=== PATIENT | male | born 1935 | race Caucasian/White ===

== ENCOUNTER 2017-03-06 08:57 | Emergency (ER) | payer OTHER, MEDICARE ==
[~2017-03-06 08:57] MED LIST: ACID REDUCER150 M1 PO; ALBUTEROL INH 0.3 ML AERO NEB; ALBUTEROL2.5 MG/3 M INH; ALDACTONE25 M1 PO; ASPIRIN EC81 MG PO; ATORVASTATIN CA40 M1 PO; CARVEDILOL6.25 MG PO; CITALOPRAM HBR40 M1 PO; COLESTID1 GM PO; COMPAZINE10 M PO; COREG12.5 M1 PO; COUMADIN6 M1 PO; DIGOXIN125 MCG PO; DITROPAN XL5 M1 PO; DOXYCYCLINE HY100 M2 PO; ELIQUIS5 M1 PO; HYDROCODON-ACE1 EA16 PO; HYDROPHILIC120 GM TP; KLOR-CON 1010 ME1 PO; LASIX20 M1 PO; LOPRESSOR50 M1 PO; MULTIVITAMINS1 EAC6 PO; NORCO 5/325 TAB1 TAB PO; PREDNISONE20 M1 PO; PRINIVIL10 M1 PO; PROTONIX40 M2 PO; RANEXA500 M1 PO; SOTALOL80 MG PO; SPIRIVA18 MC1 INH; SYMBICORT 16010.2 GM INH; SYMBICORT 80-41 PUFF INH; WARFARIN SODIUM6 MG PO; ZANTAC150 M1 PO; ZANTAC150 MG PO; ZITHROMAX250 M1 PO
[2017-03-06] MEDS ORDERED: SYNTHROID25 MC1 PO (10:02)
[2017-03-06 10:03] LABS: BASO % 0.4 % (0-2); EOS % 3.3 % (0-7); EOSINOPHIL ABSOLUTE COUNT 0.3 tho/cmm (0.0-0.7); HCT-HEMATOCRIT 41.2 % (36.0-53.5); HGB-HEMOGLOBIN 13.7 gm/dl (13.5-17.0); IMMATURE GRANULOCYTES ABSOLUTE 0.01 tho/cmm (0-0.03); IMMATURE GRANULOCYTES PERCENT 0.1 % (0-0.3); LYMPH ABSOLUTE COUNT 1.5 tho/cmm (0.8-4.5); MCH (MEAN CORPUSCULAR HGB) 31.1 pg (28.0-32.0); MCHC MEAN CORPUSCULAR HGB CONC 33.3 % (32.0-36.0); MCV (MEAN CELL VOLUME) 93.6 fl (82.0-96.0); MEAN PLATELET VOLUME 9.9 cmc (9.4-12.4); MONOCYTE ABSOLUTE COUNT 0.6 tho/cmm (0.0-1.2); NEUTROPHIL ABSOLUTE COUNT 5.7 tho/cmm (1.6-8.0); NEUTROPHIL-AUTOMATED 5.7 tho/cmm (1.6-8.0); NEUTROPHILS % 70.2 % (40-80); PLATELET COUNT 148 tho/cmm (150-450); RED CELL DISTRIBUTION WIDTH 13.6 % (12.4-16.4); WHITE BLOOD COUNT 8.1 tho/cmm (4.0-10.0)
[2017-03-06 10:06] LABS: INR 1.2 INR (0.9-1.1); PROTHROMBIN TIME 13.4 SECONDS (9.0-13.6)
[2017-03-06 10:13] LABS: ANION GAP 11 mmol/L (0-20); BLOOD UREA NITROGEN 27 mg/dl (6-24); CALCIUM 8.9 mg/dl (8.5-10.5); CARBON DIOXIDE-VENOUS 31 mmol/L (22-32); CHLORIDE 104 mmol/l (96-110); CREATININE 1.22 mg/dl (0.60-1.30); GLUCOSE 125 mg/dL (70-110); POTASSIUM 4.1 mmol/L (3.7-5.1); SODIUM 142 mmol/L (135-145); eGFR VALUE FOR BLACK 64 mL/Min
[2017-03-06 10:55] LABS: URINE BILIRUBIN NEGATIVE (NEG); URINE BLOOD LARGE (NEG); URINE GLUCOSE (UA) NEGATIVE (NEG); URINE KETONE NEGATIVE (NEG); URINE LEUKOCYTE ESTERASE POSITIVE (NEG); URINE NITRITE POSITIVE (NEG); URINE PH 6.5 (5.0-8.0); URINE PROTEIN MODERATE (NEG)
[2017-03-06 10:59] LABS: URINE APPEARANCE HAZY; URINE COLOR YELLOW
[2017-03-06 11:02] LABS: URINE EPITHELIAL CELLS RARE /[HPF] (0-10); URINE RBC 80-100 /[HPF] (0-5); URINE WBC 50-60 /[HPF] (0-5)
[2017-03-06] MEDS ORDERED: KEFLEX500 M4 PO (11:30)
[2017-03-06] MEDS ORDERED: MIRALAX17 G2 PO (11:30)
[2017-05-20] MEDS ORDERED: KEFLEX500 M4 PO (20:21)
== END 2017-03-06 12:18 ==
LOC: EDMED 08:57
PROVIDERS: Emergency Medicine
DX: K59.00 Constipation, unspecified (principal); N39.0 Urinary tract infection, site not specified; I25.10 Atherosclerotic heart disease of native coronary artery without angina pectoris; I10 Essential (primary) hypertension; J44.9 Chronic obstructive pulmonary disease, unspecified; E78.5 Hyperlipidemia, unspecified; Z95.1 Presence of aortocoronary bypass graft; Z98.890 Other specified postprocedural states; Z79.51 Long term (current) use of inhaled steroids; Z79.899 Other long term (current) drug therapy; Z79.82 Long term (current) use of aspirin